=== PATIENT | male | born 1980 | race African-American/Black ===

== ENCOUNTER 2016-04-18 16:18 | Emergency (ER) | payer MEDICAID ==
[~2016-04-18] VITALS: Ht 180.3 cm; Wt 111.1 kg
[2016-04-18] MEDS ORDERED: NKM (16:32)
[2016-04-18 16:37] VITALS: BP 126/88
--- NOTE | 2016-04-18 17:24 | Emergency Room Report ---
History of Present Illness General Chief Complaint: Pain Source: Patient Present Illness HPI 35-year-old male presents emergency department complaining of pain described as burning sensation interdigitally, feet x2 weeks. Pt states he has had a hx of athlete's foot in the past from the gym which presented similarly . He also complains of infected ingrown hairs along the chin after shaving with old razor x 5 days denies, erythema, swelling, LAD. Patient denies nausea vomiting fevers or chills. Denies CP, Palpitations, LOC, AMS, dizziness, Changes in Vision, Sensation, paresthesias, or a sudden severe headache. Allergies: Coded Allergies: No Known Allergies (Unverified , 04/18/16) Patient History Past Medical History: see triage record Past Surgical History: none Pertinent Family History: none Immunizations: UTD Reviewed Nursing Documentation: PMH: Agreed, PSxH: Agreed Nursing Documentation-PMH Past Medical History: No Stated History Review of Systems All Other Systems: negative except mentioned in HPI Physical Exam Vital Signs Date Time Temp Pulse Resp B/P Pulse Ox O2 Delivery O2 Flow Rate FiO2 04/18/16 16:28 97.9 77 16 126/88 98 Room Air Sp02 EP Interpretation: reviewed, normal General Appearance: no apparent distress, alert, GCS 15, non-toxic Head: normocephalic, atraumatic Eyes: bilateral eye PERRL, bilateral eye normal inspection ENT: hearing grossly normal, normal pharynx, no angioedema, normal voice Neck: full range of motion, supple/symm/no masses Respiratory: chest non-tender, lungs clear, normal breath sounds, speaking full sentences Cardiovascular #1: regular rate, rhythm, no edema Rectal: deferred Genitourinary: normal inspection, no CVA tenderness Musculoskeletal: back normal, gait/station normal, normal range of motion, non- tender, no calf tenderness Neurologic: alert, oriented x3, responsive, motor strength/tone normal, sensory intact, speech normal Psychiatric: judgement/insight normal, memory normal, mood/affect normal, no suicidal/homicidal ideation Skin: normal color, warm/dry, well hydrated, rash - macerated lesions interdigitally on the toes bilaterally consistent with tinea infection. Pt. also has multiple pustules along the jaw line bilaterally consistent with folliculitis. no evidence of secondary cellulitis at this time. Lymphatic: no adenopathy Medical Decision Making PA Attestation Dr. Snider is my supervising Physician whom patient management has been discussed with. Diagnostic Impression: Primary Impression: Tinea pedis of both feet Additional Impression: Acute folliculitis ER Course Pt. presents to the ED c/o rash between toes x 2 weeks, with infected chin hairs after shaving with old razor x 5 days. Ddx considered but are not limited to cellulitis, scabies, shingles, varicella, dermatitis, urticaria, eczema, tinea pedis, folliculitis Vital signs: are WNL, pt. is afebrile H&PE are most consistent with tinea pedis, and folliculitis. ORDERS: none required at this time, the diagnosis is clinical ED INTERVENTIONS: None required at this time. DISCHARGE: At this time pt. is stable for d/c to home. Will provide printed patient care instructions, and any necessary prescriptions. Care plan and follow up instructions have been discussed with the patient prior to discharge. Last Vital Signs Date Time Temp Pulse Resp B/P Pulse Ox O2 Delivery O2 Flow Rate FiO2 04/18/16 16:37 97.9 16 126/88 98 Room Air 04/18/16 16:28 77 Disposition: HOME, SELF-CARE Condition: Stable Scripts Doxycycline Hyclate* (VIBRAMYCIN*) 100 Mg Capsule 100 MG ORAL EVERY 12 HOURS for 7 Days, #14 CAP 0 Refills Prov: Sun Gutiérrez 04/18/16 Terbinafine Hcl (TERBINAFINE HCL) 30 Gm Cream..g. 1 APPLIC TP TID for 28 Days, #30 GM 1 Refill Prov: Sun Gutiérrez 04/18/16 Patient Instructions: Athlete's Foot Additional Instructions: Take medications as directed. Follow up with PCP in 3-5 days Return sooner to ED if new symptoms occur, or current symptoms become worse. Sun Gutiérrez Apr 18, 2016 17:24
[2016-04-18] MEDS ORDERED: TERBINAFINE HCL30 GM TP (17:26)
[2016-04-18] MEDS ORDERED: VIBRAMYCIN100 MG ORAL (17:26)
[2016-04-18 17:30] VITALS: BP 126/88
== END 2016-04-18 18:00 | disposition home or self-care (01) ==
LOC: EMR 17:35
DX: B35.3 Tinea pedis (principal); L73.9 Follicular disorder, unspecified
CPT/HCPCS: 99282